=== PATIENT | female | born 1950 | race Caucasian/White ===

== ENCOUNTER 2016-07-11 07:28 | Emergency (ER) | payer BC ==
[~2016-07-11] VITALS: Ht 154.9 cm; Wt 94.0 kg
[~2016-07-11 07:28] MED LIST: ACID CONTROL150 MG PO; BUTALB-APAP-CA1 EACH PO; CELEBREX200 MG PO; CLARINEX5 MG PO; DIFLUCAN150 MG PO; ESCITALOPRAM OX10 MG PO; ESTRING1 EACH VG; FLOMAX0.4 MG PO; LEVOTHYROXINE112 MCG PO; LOSARTAN POTASS50 MG PO; LYRICA50 MG PO; NAPROSYN500 MG PO; NAPROXEN500 MG PO; NASONEX17 GM BOTH NARES; NEXIUM40 MG PO; PLAVIX75 MG PO; PREMARIN1.25 MG PO; RANITIDINE HCL300 MG PO; SINGULAIR10 MG PO; SPIRIVA1 INHALATI IH; TOPAMAX50 MG PO; TOPIRAMATE25 MG PO; TRAZODONE HCL50 MG PO; VITAMIN D3 PO; VITAMIN D32000 UNI1 PO; ZOFRAN ODT4 MG PO
[2016-07-11 08:30] LABS: INFLUENZA A VIRAL ANTIGEN NEGATIVE; INFLUENZA B VIRAL ANTIGEN NEGATIVE
[2016-07-11] MEDS ORDERED: TESSALON PERLE100 MG PO (08:35)
[2016-07-11] MEDS ORDERED: DUONEB 2.5-0.5 M3 ML AEROSOL (08:55)
[2016-07-11 09:18] VITALS: BP 173/72
== END 2016-07-11 09:19 | disposition home or self-care (01) ==
LOC: EME 07:28
PROVIDERS: Nurse Practitioner Family
DX: J06.9 Acute upper respiratory infection, unspecified (principal); J45.909 Unspecified asthma, uncomplicated; I10 Essential (primary) hypertension; G89.29 Other chronic pain; Z90.710 Acquired absence of both cervix and uterus; Z79.890 Hormone replacement therapy; Z79.02 Long term (current) use of antithrombotics/antiplatelets
CPT/HCPCS: 71020; 87502; 93005; 94640; 99281; 99284

== ENCOUNTER 2016-10-29 23:45 | Emergency (ER) | payer BC ==
[~2016-10-29] VITALS: Ht 162.6 cm; Wt 91.9 kg
[~2016-10-29 23:45] MED LIST changes: +DUONEB 2.5-0.5 M3 ML AEROSOL; +TESSALON PERLE100 MG PO
[2016-10-30 01:40] LABS: HEMATOCRIT 42.5 % (36.0-46.0); MCH 28.9 PG (29.0-34.0); MCHC 33.2 G/DL (30.0-36.0); MCV 87.1 FL (83-99); MEAN PLAT.VOLUME 10.6 uM^3 (9.5-12.4); PLATELET COUNT 234 K/uL (156-360); RBC DIS.WIDTH-CV 13.7 % (11.8-14.6); RBC DIS.WIDTH-SD 44.2 % (39-53); RED BLOOD COUNT 4.88 M/uL (3.80-5.20); WHITE BLOOD COUNT 13.3 K/uL (4.1-10.2)
[2016-10-30 01:50] LABS: CHLORIDE 109 mEq/L (99-109); POTASSIUM 3.6 mEq/L (3.7-5.4); SODIUM 139 mEq/L (136-147)
[2016-10-30 01:51] LABS: GLUCOSE 107 mg/dL (70-99)
[2016-10-30 01:53] LABS: ANION GAP 10 MEQ/L (2-14)
[2016-10-30 01:55] LABS: GFR ESTIMATE (CALCULATED) 48 mL/min/
[2016-10-30 01:56] LABS: UREA NITROGEN (BUN) 14 mg/dL (9-23)
[2016-10-30 02:33] LABS: ADD MIUA? YES
[2016-10-30 02:35] LABS: COLOR RED ((YELLOW)); SPECIFIC GRAVITY 1.022 (1.000-1.030)
[2016-10-30 02:40] LABS: UCUL ADDED? YES
[2016-10-30] MEDS ORDERED: PERCOCET 5/31 TABLET PO (03:00)
[2016-10-30] MEDS ORDERED: CIPRO500 MG PO (03:00)
[2016-10-30] MEDS ORDERED: ZOFRAN ODT4 MG PO (03:00)
[2016-10-30] MEDS ORDERED: FLOMAX0.4 MG PO (03:00)
[2016-10-30 03:59] VITALS: BP 156/80
== END 2016-10-30 04:01 | disposition home or self-care (01) ==
LOC: EME 23:45
DX: N20.1 Calculus of ureter (principal); N23 Unspecified renal colic; I10 Essential (primary) hypertension; K21.9 Gastro-esophageal reflux disease without esophagitis; Z87.442 Personal history of urinary calculi; Z88.0 Allergy status to penicillin
CPT/HCPCS: 74176; 80048; 81003; 85027; 87086; 99281; 99285; J1885; J2270; J2405; J7030

== ENCOUNTER → 2016-11-05 | Outpatient (CLI) | payer BC ==
[~2016-11-05] MED LIST changes: +CIPRO500 MG PO; +PERCOCET 5/31 TABLET PO
== END | disposition home or self-care (01) ==
LOC: CDC 11:00
DX: R00.1 Bradycardia, unspecified (principal)
CPT/HCPCS: 93000

== ENCOUNTER 2017-04-05 13:24 | Emergency (ER) | payer OTHER, BC ==
[~2017-04-05] VITALS: Ht 160 cm; Wt 89.9 kg
[2017-04-05 14:17] LABS: HEMATOCRIT 38.7 % (36.0-46.0); MCH 29.4 PG (29.0-34.0); MCHC 33.1 G/DL (30.0-36.0); MEAN PLAT.VOLUME 10.4 uM^3 (9.5-12.4); PLATELET COUNT 212 K/uL (156-360); RBC DIS.WIDTH-CV 13.4 % (11.8-14.6); RBC DIS.WIDTH-SD 44.1 % (39-53); RED BLOOD COUNT 4.35 M/uL (3.80-5.20); WHITE BLOOD COUNT 6.2 K/uL (4.1-10.2)
[2017-04-05 14:30] LABS: CHLORIDE 108 mEq/L (99-109); SODIUM 138 mEq/L (136-147)
[2017-04-05 14:32] LABS: GLUCOSE 101 mg/dL (70-99)
[2017-04-05 14:33] LABS: ANION GAP 6 MEQ/L (2-14)
[2017-04-05 14:34] LABS: TOTAL BILIRUBIN 0.3 mg/dL (0.0-1.0)
[2017-04-05 14:36] LABS: ALKALINE PHOSPHATASE 84 IU/L (3-129); GFR ESTIMATE (CALCULATED) > 59 mL/min/
[2017-04-05 14:37] LABS: UREA NITROGEN (BUN) 11 mg/dL (9-23)
[2017-04-05 14:52] LABS: D-DIMER ELISA < 150.00 ng/mLDDU (<230)
[2017-04-05 15:03] LABS: TROP-I INTERPRETATION NEGATIVE; TROPONIN-I < 0.01 ng/mL (0.0-0.30)
[2017-04-05] MEDS ORDERED: HYCODAN SYRUP480 ML PO (16:18)
[2017-04-05] MEDS ORDERED: DELTASONE20 M1 PO (16:18)
[2017-04-05 16:52] VITALS: BP 116/61
== END 2017-04-05 16:54 | disposition home or self-care (01) ==
LOC: EME 13:24
PROVIDERS: Emergency Medicine
DX: J45.901 Unspecified asthma with (acute) exacerbation (principal); R06.03 Acute respiratory distress; I10 Essential (primary) hypertension; K21.9 Gastro-esophageal reflux disease without esophagitis; E03.9 Hypothyroidism, unspecified; F32.9 Major depressive disorder, single episode, unspecified; Z79.01 Long term (current) use of anticoagulants; Z85.41 Personal history of malignant neoplasm of cervix uteri; Z88.0 Allergy status to penicillin
CPT/HCPCS: 71020; 80053; 83605; 83880; 84484; 85027; 85379; 87040; 93005; 94640; 99281; 99285; J2405; J7030